=== PATIENT | male | born 1945 | race Caucasian/White ===

== ENCOUNTER 2021-06-25 19:28 | Emergency (ER) | payer MEDICARE, OTHER ==
[~2021-06-25] VITALS: Ht 180.3 cm; Wt 89.4 kg
[2021-06-25] MEDS ORDERED: NORVASC10 MG PO (19:45)
[2021-06-25] MEDS ORDERED: DAILY VALUE1 EAC1 PO (19:45)
[2021-06-25] MEDS ORDERED: SERTRALINE HCL100 MG PO (19:45)
[2021-06-25] MEDS ORDERED: LIPITOR40 MG PO (19:45)
[2021-06-25] MEDS ORDERED: ARICEPT10 M1 PO (19:45)
[2021-06-25] MEDS ORDERED: PRESERVISION T1 EACH PO (19:46)
[2021-06-25] MEDS ORDERED: KRILL OIL500 MG PO (19:46)
[2021-06-25] MEDS ORDERED: VITAMIN C500 M1 PO (19:46)
[2021-06-25 21:20] VITALS: BP 144/61
== END 2021-06-25 21:21 | disposition home or self-care (01) ==
LOC: M.ERS 19:28
DX: M25.512 Pain in left shoulder (principal); R51.9 Headache, unspecified; E78.00 Pure hypercholesterolemia, unspecified; F32.9 Major depressive disorder, single episode, unspecified; F03.90 Unspecified dementia, unspecified severity, without behavioral disturbance, psychotic disturbance, mood disturbance, and anxiety; Z79.899 Other long term (current) drug therapy; W19.XXXA Unspecified fall, initial encounter; Y93.89 Activity, other specified; Y92.89 Other specified places as the place of occurrence of the external cause; Y99.8 Other external cause status